=== PATIENT | male | born 1950 | race Caucasian/White ===

== ENCOUNTER → 2016-10-26 | Outpatient (CLI) | payer OTHER ==
[~2016-10-26] MED LIST: AMLO2.5T PO; ASPI-999 PO; FENT1PAT9 TD; LISI10TA2 PO; OXYC-202 PO; PRD20T PO; SERT100T PO; TAMS0.4C98 PO
--- NOTE | 2016-10-26 15:00 | Diagnostic Imaging Report ---
PROCEDURE: MRI left joint lower extremity without contrast. TECHNIQUE: Multiplanar, multisequence non contrast-enhanced MRI of the left lower extremity was accomplished. INDICATION: Left knee pain. Medial meniscus tear. FINDINGS: There is a [id number] suprapatellar effusion. There is a longitudinal split tear in the proximal aspect of the popliteus tendon with a ganglion cyst at the site of the tear measuring 1.3 x 1.3 x 2.6 cm in size. There is no Renae's cyst. The extensor mechanism is intact. There is slight increased signal in the ACL, likely related to old injury or mucinous degeneration with no significant acute tear. The PCL appears intact. The medial meniscus demonstrates a complex tear involving the posterior horn and extending to the body of the meniscus. The tear also extends to the meniscus root posteriorly. The anterior horn appears intact. There is partial extrusion of the body of the medial meniscus. The lateral meniscus appears intact. The MCL and the lateral collateral ligament complex appear intact. The medial compartment demonstrates generalized 50% cartilage loss with more severe area of cartilage thinning, about 75%, posteriorly in the medial compartment. The lateral compartment cartilage is largely preserved. There is mild thinning in the cartilage within the patellofemoral compartment with a worse degree of cartilage thinning in the central superior aspect along the patella. There is corresponding minimal subchondral bone marrow edema seen in the patella and the tibial plateau, likely secondary to degenerative changes. The muscles around the knee have normal bulk and signal. IMPRESSION: 1. Complex tear involving posterior horn of the medial meniscus extending to the body of the meniscus and to the posterior root. 2. Osteoarthritis changes, most prominent in the medial and patellofemoral compartments. 3. Focal longitudinal split tear involving the proximal aspect of the popliteus tendon with a ganglion cyst seen at the site of the tear. Dictated by: Dictated on workstation # [id number]
== END ==
LOC: RAD 13:19
PROVIDERS: ATTEND Nurse Practitioner
DX: S83.232D Complex tear of medial meniscus, current injury, left knee, subsequent encounter (principal)
CPT/HCPCS: 73721

== ENCOUNTER → 2017-07-09 | Outpatient (CLI) | payer OTHER ==
--- NOTE | 2017-07-09 17:52 | Diagnostic Imaging Report ---
PROCEDURE: MR imaging cervical spine without contrast. TECHNIQUE: Multiplanar, multisequence MR imaging of the cervical spine was performed without contrast. INDICATION: Neck pain. Stiffness. Left shoulder pain. COMPARISON: None. FINDINGS: Normal alignment. Vertebral body heights are preserved. No suspicious bone marrow signal. No abnormal signal in the cervical spinal cord. There are postoperative findings of anterior fusion with interbody grafting at C5-C6. The visualized cervical carotid and vertebral artery flow voids are preserved. The paravertebral soft tissues are unremarkable. C2-C3: No substantial spinal canal or neural foraminal narrowing. C3-C4: Posterior disc osteophyte complex and uncovertebral joint hypertrophy result in mild spinal canal and moderate bilateral neural foraminal narrowing. C4-C5: Posterior disc osteophyte complex results in mild spinal canal narrowing. Uncovertebral and facet arthropathy result in advanced left and moderate right neural foraminal narrowing. C5-C6: No spinal canal narrowing. Osteophytic ridging and facet arthropathy result in advanced left and moderate right neural foraminal narrowing. C6-C7: Posterior disc osteophyte complex results in moderate spinal canal narrowing. Uncovertebral and facet arthropathy results in advanced bilateral neural foraminal narrowing. C7-T1: No substantial spinal canal or neural foraminal narrowing. IMPRESSION: 1. Postoperative findings of anterior fusion with interbody grafting at C5-C6. Normal alignment. 2. Uncovertebral and facet arthropathy result in diffuse moderate and advanced neural foraminal narrowing detailed above level by level. Spondylotic changes also result in moderate spinal canal narrowing at C6-C7. There is no abnormal signal in the cervical spinal cord. Dictated by: Dictated on workstation # [id number]
== END ==
LOC: RAD 09:42
PROVIDERS: ATTEND Nurse Practitioner Community Health
DX: M47.812 Spondylosis without myelopathy or radiculopathy, cervical region (principal); M48.02 Spinal stenosis, cervical region; Z98.1 Arthrodesis status
CPT/HCPCS: 72141

== ENCOUNTER → 2017-07-09 | Outpatient (CLI) | payer OTHER ==
--- NOTE | 2017-07-09 16:28 | Diagnostic Imaging Report ---
PROCEDURE: MRI left upper extremity without contrast. TECHNIQUE: Multiplanar, multisequence non contrast-enhanced MRI of the left upper extremity was accomplished. INDICATION: Left shoulder pain. FINDINGS: ROTATOR CUFF: There is full-thickness tear of the supraspinatus tendon anteriorly with approximately 10 mm of retraction. The infraspinatus appears intact. The subscapularis is intact though there is some edema along the anterior superior attachment. There is normal muscle bulk of the rotator cuff. LABRUM: The labrum does appear intact. There is no joint effusion. Long head of the biceps is in the biceps tendon and attaches to the labrum in a normal fashion. BONES AND CARTILAGE: Humeral head is in normal articulation with the glenoid fossa. Cartilage is well preserved with smooth articulating surfaces. No cortical fractures. There is considerable subcortical cystic change at the humeral tuberosity at the attachment of supraspinatus tendon. Hypertrophic changes seen of the AC joint with fluid in the synovial joint space. IMPRESSION: 1. There is a full-thickness tear involving the anterior portion of the supraspinatus tendon with 1 cm of retraction. There is associated subcortical cystic change of the humeral tuberosity. Mild edema noted along the anterior superior aspect of the subscapularis tendon. 2. No definite labral tears are seen. Long head of the biceps attaches normally to the labrum. 3. Hypertrophic changes of the AC joint. Dictated by: Dictated on workstation # [id number]
--- NOTE | 2017-07-09 17:02 | Diagnostic Imaging Report ---
PROCEDURE: MRI left joint lower extremity without contrast. TECHNIQUE: Multiplanar, multisequence non contrast-enhanced MRI of the left lower extremity was accomplished. MRI LT LOWER EXT JOINT W/O TECHNIQUE: Multiplanar, multisequence MR imaging of the left knee was performed without contrast. COMPARISON: Left knee MRI from 10/26/2016. INDICATION: Knee pain. Partial meniscectomy in the interim since prior knee MRI. FINDINGS: MENISCI Medial meniscus: There remains truncation throughout the free edge of the medial meniscus indicative of degenerative tearing or partial meniscectomy. Lateral meniscus: Normal. LIGAMENTS ACL: Intact with mild mucoid degeneration. PCL: Intact. MCL: Intact. LCL: The lateral collateral ligamentous complex is intact. EXTENSOR MECHANISM The extensor mechanism is intact. CARTILAGE Medial compartment: Diffuse chondral wear through the medial compartment with multifocal chondral fissuring. There is a broad area of full-thickness chondral loss in the posterior weightbearing surface of the medial femoral condyle. Lateral compartment: Diffuse chondral wear without superimposed full-thickness chondromalacia. Patellofemoral compartment: Multifocal chondral fissuring throughout the lateral patellar facet and trochlea. BONE No fracture, stress fracture or osteonecrosis. SOFT TISSUE: Small knee joint effusion. No Renae's cyst. IMPRESSION: 1. Status post partial meniscectomy of the medial meniscus. No recurrent medial meniscal tear. 2. No lateral meniscal tear. 3. Tricompartmental knee osteoarthritis remains greatest in medial compartment with broad areas of full-thickness chondral loss. 4. Small knee joint effusion with mild synovitis. Dictated by: Dictated on workstation # [id number]
== END ==
LOC: RAD 09:47
PROVIDERS: ATTEND Orthopaedic Surgery
DX: M75.112 Incomplete rotator cuff tear or rupture of left shoulder, not specified as traumatic (principal); M19.012 Primary osteoarthritis, left shoulder; M17.12 Unilateral primary osteoarthritis, left knee; M25.462 Effusion, left knee; Z98.890 Other specified postprocedural states
CPT/HCPCS: 73221; 73721

== ENCOUNTER → 2021-01-15 | Outpatient (CLI) | payer BC ==
[~2021-01-15] MED LIST changes: -AMLO2.5T PO; +AMLO2.5T4 PO; +LEVO750T9 PO; -LISI10TA2 PO; +LISI10TA25 PO; +ONDA8TAB9 PO; -OXYC-202 PO; +OXYC1TAB12 PO; -TAMS0.4C98 PO; +TMSL.4C PO
== END ==
LOC: CARD 09:30
PROVIDERS: ATTEND Internal Medicine Cardiovascular Disease
DX: I10 Essential (primary) hypertension (principal); I51.7 Cardiomegaly
CPT/HCPCS: 93306

== ENCOUNTER → 2023-06-14 | Outpatient (CLI) | payer BC ==
--- NOTE | 2023-06-14 15:36 | Diagnostic Imaging Report ---
CLINICAL INDICATION: Patient with neck pain which travels down both arms. Patient has history of cervical spine surgery. EXAM: MRI of the cervical spine without IV contrast. Sequences include sagittal T2, sagittal T1, sagittal T2 fat-sat, and axial T2. COMPARISON: MRI of the cervical spine without contrast dated 07/09/2017. FINDINGS: There is motion artifact limiting evaluation of the anatomical detail especially on the axial T2 sequence. Again seen are postoperative changes with C5-C6 anterior cervical discectomy fusion. There appears to be intervertebral bony bridging/fusion. Limited visualization of posterior fossa unremarkable. Cervical spinal cord has normal cord caliber with no abnormal signal. There is no abnormal paraspinal soft tissue abnormality. C1-C2: There are degenerative spurs involving the atlantoodontoid interval anteriorly. There is no significant central canal stenosis. C2-C3: There is no significant central canal or neuroforaminal narrowing. C3-C4: T here is mild diffuse disk bulge with slight increased size of the bilateral uncinate spurs. There is moderate right facet arthropathy and mild left facet arthropathy/hypertrophy. There is severe right neural foramen narrowing and severe left neural foramen narrowing which has slightly progressed. There is mild to moderate central canal stenosis which is slightly progressed. C4-C5: There is a diffuse disk bulge with mild loss of disk space height. There are small left uncinate spurs. There is moderate central canal stenosis which has slightly progressed. There is mild right neural foramen narrowing and severe left neural foramen narrowing which is also noted on the prior study. C5-C6: There is mild right facet arthropathy and moderate left facet arthropathy. There is no significant central canal stenosis. There is mild to moderate right neural foramen narrowing and at least moderate left neural foramen narrowing. C6-C7: There is mild bilateral facet arthropathy. There is diffuse disk bulge with increased size of the uncinate spurs. There is moderate to severe central canal stenosis which is not significantly changed. There is severe bilateral neural foramen narrowing which is also noted on the prior study. C7-T1: There is mild bilateral facet arthropathy. There is no significant central canal or neural foramen narrowing. IMPRESSION: 1: There is C5-C6 anterior cervical discectomy/fusion. There is solid bony bridging/fusion. 2: There is multilevel cervical spine degenerative disk disease which has slightly progressed, and is described above. Dictated by: Dictated on workstation # [id number]
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
== END ==
LOC: RAD 12:29
PROVIDERS: ATTEND Family Medicine
DX: M50.31 Other cervical disc degeneration, high cervical region (principal); M47.812 Spondylosis without myelopathy or radiculopathy, cervical region; M48.02 Spinal stenosis, cervical region; M50.321 Other cervical disc degeneration at C4-C5 level; M50.323 Other cervical disc degeneration at C6-C7 level; M47.813 Spondylosis without myelopathy or radiculopathy, cervicothoracic region; M43.22 Fusion of spine, cervical region; M51.36 Other intervertebral disc degeneration, lumbar region; G89.21 Chronic pain due to trauma; I10 Essential (primary) hypertension; N40.0 Benign prostatic hyperplasia without lower urinary tract symptoms; F32.A Depression, unspecified
CPT/HCPCS: 72141; 72148

== ENCOUNTER → 2023-06-15 | Outpatient (CLI) | payer BC ==
--- NOTE | 2023-06-15 14:52 | Diagnostic Imaging Report ---
PROCEDURE: MRI pelvis without contrast. TECHNIQUE: Multiplanar, multisequence MRI of the pelvis was performed without contrast. INDICATION: Low back pain with right sciatica, radiculopathy. Pelvis surgery in 2010 with hardware placed. COMPARISON: CT from 07/29/2017 FINDINGS: There is significant artifact from the hardware in the right pelvis and transfixing the right SI joint. No acute fracture is seen in the sacrum or imaged pelvis. There is mild degenerative change in the left SI joint. There is transitional anatomy at the lumbosacral junction with hemisacralization and possible pseudarthrosis at the left L5 transverse process and sacrum. There is mild associated bone marrow edema. There is degenerative change in the lower lumbar spine as described on the recent MRI. The femoral heads are well-seated in the acetabula bilaterally. There is mild degenerative change. No joint effusion is seen. The iliopsoas tendons appear intact. There is no iliopsoas bursitis. There is generalized asymmetric muscular atrophy about the right hip. No soft tissue masses or fluid collections are seen. The right sciatic nerve appears normal in caliber and signal at the imaged portions, although partially obscured by the hardware artifact. IMPRESSION: 1. Artifact from the fixation hardware in the right pelvis. No acute osseous abnormality is seen. 2. Degenerative change in the lower lumbar spine with transitional anatomy and suspected pseudoarthrosis on the left at L5-S1. Dictated by: Dictated on workstation # [id number]
== END ==
LOC: RAD 07:24
PROVIDERS: ATTEND Family Medicine
DX: M47.26 Other spondylosis with radiculopathy, lumbar region (principal)
CPT/HCPCS: 72195